=== PATIENT | male | born 1955 | race Caucasian/White ===

== ENCOUNTER 2023-05-18 13:47 | Emergency (ER) | payer MEDICARE, MEDICAID ==
[2023-05-18 14:12] LABS: EOSINOPHILS PERCENT AUTO 0.2 % (0.0-4.0); HEMATOCRIT 33.9 % (40.0-52.0); HEMOGLOBIN 11.2 g/dL (14.0-18.0); IMMATURE GRAN ABSOLUTE AUTO 0.02 x10^3/uL (0.00-0.07); LYMPHOCYTES ABSOLUTE AUTO 0.6 x10^3/uL (1.0-4.8); LYMPHOCYTES PERCENT AUTO 7.4 % (25.0-50.0); MEAN CORPUSCULAR HEMOGLOBIN 28.9 pg (26.0-32.0); MEAN CORPUSCULAR VOLUME 87.6 fL (78.0-93.0); MONOCYTES ABSOLUTE AUTO 0.6 x10^3/uL (0.0-0.8); MONOCYTES PERCENT AUTO 7.7 % (2.0-11.0); NEUTROPHILS PERCENT AUTO 84.5 % (50.0-80.0); PLATELET COUNT,PLT 224 x10^3/uL (130-400); RED BLOOD CELL COUNT 3.87 x10^6/uL (4.5-6.0); WHITE BLOOD CELL COUNT,WBC 8.3 x10^3/uL (4.0-10.0)
[2023-05-18 14:32] LABS: A/G RATIO 0.64; ALBUMIN 2.5 g/dL (3.4-5.0); BILIRUBIN TOTAL 0.2 mg/dL (0.2-1.0); C-REACTIVE PROTEIN 7.12 mg/dL (<=0.30); CALCIUM 8.3 mg/dL (8.5-10.1); CREATININE 0.8 mg/dL (0.70-1.30); EST CRCL DRUG DOSING (CG) 81.48 mL/min; POTASSIUM,K 3.4 mmol/L (3.5-5.1); PROTEIN TOTAL,TP 6.4 g/dL (6.4-8.2)
[2023-05-18 14:33] LABS: ANION GAP 12.4 mmol/L (5-15)
[2023-05-18 17:06] LABS: APPEARANCE,URINE SLIGHTLY CLOUDY (CLEAR); BILIRUBIN,URINE SMALL (NEGATIVE); COLOR,URINE DARK YELLOW (YELLOW); GLUCOSE,URINE NEGATIVE (NEGATIVE); KETONES,URINE TRACE mg/dL (NEGATIVE); LEUKOCYTE ESTERASE,URINE NEGATIVE (NEGATIVE); NITRITE,URINE NEGATIVE (NEGATIVE); OCCULT BLOOD,URINE NEGATIVE (NEGATIVE); PH,URINE 5.5 (5.0-8.0); PROTEIN,URINE >=300 mg/dL (NEGATIVE)
[2023-05-18 17:07] LABS: AMPHETAMINES SCREEN, URINE POSITIVE (NEGATIVE); BARBITURATE SCREEN,URINE NEGATIVE (NEGATIVE); BENZODIAZEPINES SCREEN,URINE NEGATIVE (NEGATIVE); BUPRENORPHINE SCREEN,URINE NEGATIVE (NEGATIVE); COCAINE METABOLITES,URINE NEGATIVE (NEGATIVE); METHADONE SCREEN, URINE NEGATIVE (NEGATIVE); METHAMPHETAMINE SCREEN, URINE POSITIVE (NEGATIVE); OXYCODONE SCREEN,URINE NEGATIVE (NEGATIVE); PCP SCREEN,URINE NEGATIVE (NEGATIVE); THC SCREEN,URINE 50 NG/ML NEGATIVE (NEGATIVE)
[2023-05-18 17:13] LABS: BACTERIA,URINE OCCASIONAL /HPF (NOT SEEN); HYALINE CASTS,URINE MODERATE; MUCUS,URINE MODERATE /LPF (NOT SEEN); RBC,URINE 0-5 /HPF (NOT SEEN); SQUAMOUS EPITHELIAL CELLS,UR NOT SEEN /HPF (NOT SEEN); WBC,URINE 0-5 /HPF (NOT SEEN)
[2023-05-18 17:26] VITALS: BP 119/62; PULSE 60
== END 2023-05-18 17:22 | disposition home or self-care (01) ==
LOC: SUPCPDRO 13:47 → VM.ED 13:47
DX: E10.649 Type 1 diabetes mellitus with hypoglycemia without coma (principal); Z79.84 Long term (current) use of oral hypoglycemic drugs; Z79.899 Other long term (current) drug therapy; Z88.8 Allergy status to other drugs, medicaments and biological substances
CPT/HCPCS: 36415; 80053; 80305-QW; 81001; 82947; 84484; 85025; 86140; 93005; 93010; 99284; 99285

== ENCOUNTER 2023-06-18 16:12 | Observation (INO) | payer MEDICARE, MEDICAID ==
[2023-06-18] MEDS ORDERED: Naloxone 0.4 MG/ML SDV IVPUSH PRN (17:09)
[2023-06-18] MEDS ORDERED: Morphine 2 MG/ML SYRINGE IM ONE (17:09)
[2023-06-18] MEDS ORDERED: Sodium Chloride 0.9% 10 ML Syringe FLUSH PRN (18:05)
[2023-06-18 18:19] LABS: HEMOGLOBIN 11.3 g/dL (14.0-18.0); IMMATURE GRAN ABSOLUTE AUTO 0.03 x10^3/uL (0.00-0.07); LYMPHOCYTES ABSOLUTE AUTO 0.2 x10^3/uL (1.0-4.8); LYMPHOCYTES PERCENT AUTO 2.3 % (25.0-50.0); MEAN CORPUSCULAR HEMOGLOBIN 27.8 pg (26.0-32.0); MEAN CORPUSCULAR HGB CONC 33.2 g/dL (32.0-36.0); MEAN CORPUSCULAR VOLUME 83.5 fL (78.0-93.0); MONOCYTES ABSOLUTE AUTO 0.6 x10^3/uL (0.0-0.8); MONOCYTES PERCENT AUTO 6.6 % (2.0-11.0); NEUTROPHILS ABSOLUTE AUTO 7.6 x10^3/uL (1.8-7.7); NEUTROPHILS PERCENT AUTO 90.7 % (50.0-80.0); RED BLOOD CELL COUNT 4.07 x10^6/uL (4.5-6.0); WHITE BLOOD CELL COUNT,WBC 8.4 x10^3/uL (4.0-10.0)
[2023-06-18 18:28] LABS: PLATELET COUNT,PLT 277 x10^3/uL (130-400)
[2023-06-18 18:31] LABS: INR 1.3 (0.9-1.1); PROTHROMBIN TIME 13.6 SEC (9.5-12.2)
[2023-06-18 18:36] LABS: A/G RATIO 0.49; ALANINE AMINOTRANSFERASE,ALT 27 U/L (16-63); ALBUMIN 2.4 g/dL (3.4-5.0); ALKALINE PHOSPHATASE 259 U/L (46-116); ASPARTATE AMNIOTRANSFERASE,AST 77 U/L (15-37); BLOOD UREA NITROGEN,BUN 22 mg/dL (7-18); CALCIUM 8.7 mg/dL (8.5-10.1); CARBON DIOXIDE,CO2 25 mmol/L (21-32); CHLORIDE,CL 92 mmol/L (98-107); GLUCOSE RANDOM 241 mg/dL (70-99); POTASSIUM,K 4.4 mmol/L (3.5-5.1); PROTEIN TOTAL,TP 7.3 g/dL (6.4-8.2); SODIUM,NA 134 mmol/L (136-145)
[2023-06-18 18:37] LABS: ANION GAP 21.4 mmol/L (5-15); ESTIMATED GFR 81 mL/min (>=60)
[2023-06-18] MEDS ORDERED: Ondansetron 4 MG/2 ML SDV IV PRN (19:07)
[2023-06-18] MEDS ORDERED: 50% Dextrose in Water 50 ML Syringe IVPUSH PRN (19:11)
[2023-06-18] MEDS ORDERED: Glucagon,Human Recombinant 1 MG Vial IM PRN (19:11)
[2023-06-18] MEDS ORDERED: Alendronate 70 MG Tab PO SCH (19:15)
[2023-06-18] MEDS: Morphine 2 MG/ML SYRINGE IVPUSH PRN (20:28)
[2023-06-18] MEDS ORDERED: INSULIN GLARGINE 100 UNIT/ML SUBCUT SCH (21:00)
[2023-06-18] MEDS ORDERED: LISINOPRIL 40 MG PO SCH (21:00)
[2023-06-18] MEDS ORDERED: Metoprolol Tartrate 50 MG Tab PO SCH (21:00)
[2023-06-18] MEDS ORDERED: METFORMIN 1000 MG PO SCH (21:00)
[2023-06-18] MEDS ORDERED: Lisinopril 20 MG Tab PO SCH (21:00)
[2023-06-18] MEDS ORDERED: Doxazosin 4 MG Tab PO SCH (21:00)
[2023-06-18] MEDS ORDERED: Insulin Glarg,Human.Rec.Analog 100 Unit/ML 10 ML Vial SUBCUT SCH (21:00)
[2023-06-18] MEDS ORDERED: TOFACITINIB CITRATE 5 MG PO SCH (21:00)
[2023-06-18] MEDS ORDERED: metFORMIN 500 MG Tab PO SCH (21:00)
[2023-06-18] MEDS ORDERED: METOPROLOL TARTRATE 100 MG PO SCH ×2 (21:02→22:30)
[2023-06-19] MEDS: Morphine 2 MG/ML SYRINGE IVPUSH PRN ×3 (01:12→08:19)
[2023-06-19] MEDS: Sodium Chloride 0.9% 1,000 ML IV SCH ×2 (01:49→08:18)
[2023-06-19 05:40] VITALS: BP 138/75; PULSE 72
[2023-06-19] MEDS ORDERED: INSULIN ASPART 100 UNIT/ML SQ SCH ×4 (09:00→21:00)
[2023-06-19] MEDS ORDERED: amLODIPine 10 MG Tab PO SCH (09:00)
[2023-06-19] MEDS ORDERED: Rosuvastatin 20 MG Tab PO SCH (09:00)
[2023-06-19] MEDS ORDERED: Sertraline 100 MG Tab PO SCH (09:00)
[2023-06-19] MEDS ORDERED: Hydrochlorothiazide/Triamterene 25-37.5 Tab PO SCH (09:00)
[2023-06-19] MEDS ORDERED: INSULN SQ SCH ×4 (09:00→21:00)
== END 2023-06-19 08:30 | disposition short-term general hospital (02) ==
LOC: VM.ED 16:12 → VM.MS 18:30
PROVIDERS: ADMIT Nurse Practitioner; ATTEND Nurse Practitioner
DX: S72.141A Displaced intertrochanteric fracture of right femur, initial encounter for closed fracture (principal); M17.0 Bilateral primary osteoarthritis of knee; N40.0 Benign prostatic hyperplasia without lower urinary tract symptoms; M06.9 Rheumatoid arthritis, unspecified; E10.9 Type 1 diabetes mellitus without complications; M81.0 Age-related osteoporosis without current pathological fracture; Z79.82 Long term (current) use of aspirin; Z79.4 Long term (current) use of insulin; Z79.899 Other long term (current) drug therapy; Z79.84 Long term (current) use of oral hypoglycemic drugs; W19.XXXA Unspecified fall, initial encounter
CPT/HCPCS: 36415; 72170; 73552; 73560; 80053; 82947; 85025; 85610; 96361; 96372; 96374; 96376; 99285; A9270; G0378; J2270; J7030